=== PATIENT | female | born 1960 | race Caucasian/White ===

== ENCOUNTER 2017-10-30 07:57 | Emergency (ER) | payer SELFPAY ==
[2017-10-30 08:08] VITALS: BP 156/73
[2017-10-30] MEDS ORDERED: Aspirin Low Dose CHEW TAB* 81 MG PO ONE (08:37)
--- NOTE | 2017-10-30 09:01 | UC ---
Minor Trauma HPI - HPI Summary HPI Summary: 56 yo pt with h/o dm2, htn, tobacco abuse presents 2 days s/p fall while walking into work. pt reports that she slipped on slushy snow and fell backwards on her butt. she did not note any pain when she first fell. she did not land on her shoulder, arm or out stretched hand. the knee started to hurt later that day. she describe it as a throbbing pain on the medial joint line. she has been able to walk. the knee feels stable with no locking popping or giving way. the left arm pain is described as an ache from left shoulder to elbow. she woke with it yesterday morning. there are no aggravating or alleviating sx. pt denies dizziness, n/v/abd pain, cp, sob, left neck or jaw pain. pt has had recent neg stress test. - History of Current Complaint Chief Complaint: UCUpperExtremity Stated Complaint: LEFT SIDE INJURY FROM FALL W/C Time Seen by Provider: 10/30/17 08:23 Hx Obtained From: Patient Hx Last Menstrual Period: 1999 ?: No Onset/Duration: Gradual Onset, Lasting Days, Still Present, Worse Since - yesterday morning Onset Of Pain: Post Accident Severity Initially: Moderate Severity Currently: Moderate Pain Intensity: 5 Mechanism Of Injury: Fall From A Standing Position Aggravating Factor(s): Ambulation Alleviating Factor(s): Rest - Allergies/Home Medications Allergies/Adverse Reactions: Allergies Allergy/AdvReac Type Severity Reaction Status Date / Time No Known Allergies Allergy Verified 10/30/17 08:08 PMH/Surg Hx/FS Hx/Imm Hx Endocrine History: Diabetes Cardiovascular History: Hypertension - Surgical History Surgical History: Yes Surgery Procedure, Year, and Place: bariatric surgery in 07/28; hysterectomy 1999 - Family History Known Family History: Positive: Cardiac Disease, Hypertension, Diabetes - Social History Occupation: Employed Full-time Alcohol Use: None Substance Use Type: None Smoking Status (MU): Light Every Day Tobacco Smoker Amount Used/How Often: 1 pack per week Cessation Counseling: Patient Advised to Stop - Immunization History Most Recent Influenza Vaccination: 08/29 Most Recent Tetanus Shot: 121/12 Review of Systems Constitutional: Negative Respiratory: Negative Cardiovascular: Negative Gastrointestinal: Negative Musculoskeletal: Arthralgia, Myalgia Neurological: Negative Psychological: Negative All Other Systems Reviewed And Are Negative: Yes Physical Exam Triage Information Reviewed: Yes Appearance: Well-Appearing, No Pain Distress, Well-Nourished Vital Signs: Initial Vital Signs Temp 98.1 F 10/30/17 08:04 Pulse 59 10/30/17 08:04 Resp 14 10/30/17 08:04 BP 156/73 10/30/17 08:04 Pulse Ox 98 10/30/17 08:04 Vital Signs Reviewed: Yes Eyes: Positive: Conjunctiva Clear. Negative: Discharge ENT: Positive: Hearing grossly normal. Negative: Muffled voice, Hoarse voice Neck exam: Normal Neck: Positive: Supple Respiratory: Positive: Lungs clear, Normal breath sounds, No respiratory distress, No accessory muscle use Cardiovascular: Positive: RRR, No Murmur Musculoskeletal: Positive: Strength Intact, ROM Intact, No Edema, Other: - tender medial joint line, lcl, mcl tender. pain with lat/med stress. positive charlene's. no lig laxity. no shaye tenderness. dis nuerovascularly intact. Neurological: Positive: Alert, Muscle Tone Normal Psychological: Positive: Age Appropriate Behavior Skin Exam: Normal Minor Trauma Course/Dx - Course Course Of Treatment: no xray evaluation was done here because r/o acs takes priority - Differential Dx/Diagnosis Differential Diagnosis/HQI/PQRI: Sprain, Strain, Other - acs Provider Diagnoses: knee sprain, possible internal derrangement of knee, left arm pain, atypical cp - r/o acs Discharge - Discharge Plan Condition: Stable Disposition: AGAINST MEDICAL ADVICE Referrals: Jodie Rodríguez MD [Primary Care Provider] -
== END 2017-10-30 08:59 | disposition left against medical advice (07) ==
LOC: UCCORT 07:57
DX: S83.90XA Sprain of unspecified site of unspecified knee, initial encounter (principal); M25.512 Pain in left shoulder; M25.522 Pain in left elbow; W00.0XXA Fall on same level due to ice and snow, initial encounter; Y93.01 Activity, walking, marching and hiking; Y92.9 Unspecified place or not applicable; Y99.9 Unspecified external cause status; R07.89 Other chest pain; E11.9 Type 2 diabetes mellitus without complications; I10 Essential (primary) hypertension; Z72.0 Tobacco use
CPT/HCPCS: 93005; 99212; A9270-GY; G0463